=== PATIENT | male | born 1995 | race Two or more races ===

== ENCOUNTER 2017-06-07 17:25 | Emergency (ER) | payer SELFPAY ==
--- NOTE | 2017-06-07 18:07 | EDM.PDOC ---
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, last Td 1 to 1.5y ago superficial - Related Data Home Meds: Home Meds Cephalexin 500 mg PO TID #15 tablet 06/07/17 [Rx] ED ROS GENERAL - Review of Systems Review Of Systems: See Below Constitutional: Reports: No Symptoms HEENT: Reports: No Symptoms Respiratory: Reports: No Symptoms Cardiovascular: Reports: No Symptoms Endocrine: Reports: No Symptoms GI/Abdominal: Reports: No Symptoms : Reports: No Symptoms Musculoskeletal: Reports: No Symptoms Skin: Reports: Wound Neurological: Reports: No Symptoms Psychiatric: Reports: No Symptoms Hematologic/Lymphatic: Reports: No Symptoms Immunologic: Reports: No Symptoms ED EXAM, GENERAL - Physical Exam Exam: See Below Exam Limited By: No Limitations General Appearance: Alert, WD/WN, No Apparent Distress Skin Exam: Other (over R knee there is a horizontal nail parallel to the skin, 12 cm long under 6 cm of skin (length) with depth of only 5 mm, just subc, freely mobile, XR unremarkable, no clinical evidence of involvement of joint or patella retinaculum or LCL, just lateral to midline, tip pointe downward, top inserted into top of skin, grasped with pliers and extracted, no bleeding, no evidence of additional f.b.) Course - Orders/Labs/Meds Orders: Active Orders 24 hr Category Date Time Status Knee 3V Rt [CR] Stat Exams 06/07/17 17:34 Ordered Departure - Departure Time of Disposition: 18:06 Disposition: Home, Self-Care 01 Condition: Good Clinical Impression: Injury by nail gun - Discharge Information Prescriptions: Cephalexin 500 mg PO TID #15 tablet Instructions: Puncture Wound Referrals: PCP,None [Primary Care Provider] - Additional Instructions: Do not immerse leg in bathtub or pool or water for 7 days. May shower. However, keep the wound covered and dry for 48 hours. To decrease the risk of infection, take cephalexin 500 mg 1 tab 3 times a day for 5 days. For pain, if needed, take ibuprofen 200 mg 4 tabs 3 times a day. May work. See a physician the same day for any increase in pain, warmth, fever, drainage, redness or swelling. Call your Physician or Return to Emergency Department if: * Your condition worsens in any way. * You develop fever greater than 100.4. * You have vomiting that does not stop with medications. * You have pain that is not controlled with medications. No sumerja la pierna en la baera, la piscina o el agua helio 7 salinas. Puede ducharse. Sin embargo, mantenga la herida tapada y seca helio 48 horas. Para disminuir el riesgo de infeccin, tome cephalexin 500 mg 1 pestaa 3 veces al da helio 5 salinas. Para el dolor, si es necesario, tome ibuprofeno 200 mg 4 tabletas 3 veces al d a. Podra funcionar. Consulte a un mdico el mismo da para cualquier aumento de dolor, calor, fiebre , drenaje, enrojecimiento o hinchazn. Llame a cuevas mdico o regrese al departamento de emergencia si: * Cuevas condicin empeora de cualquier manera. * Usted desarrolla fiebre mayor que 100.4. * Tiene vmitos que no se detienen con los medicamentos. * Tiene dolor que no se controla con medicamentos. - My Orders Last 24 Hours: My Active Orders 06/07/17 17:34 Knee 3V Rt [CR] Stat - Assessment/Plan Last 24 Hours: My Active Orders 06/07/17 17:34 Knee 3V Rt [CR] Stat
[2017-06-07] MEDS ORDERED: Cephalexin 500 MG Cap PO ONE (18:13)
--- NOTE | 2017-06-08 10:32 | CR ---
INDICATION: Nail under skin, question joint involvement. RIGHT KNEE: Three views of the right knee were obtained, revealing a large nail apparently in the soft tissues adjacent to the medial aspect of the distal femur and proximal tibia. A definite fracture or dislocation was not identified. A definite joint effusion is not identified, suggesting that the nail is not traversing the joint space. This should be correlated clinically, however. CT examination may be helpful for confirmation, as felt to be clinically necessary. MTDD
== END 2017-06-07 18:30 | disposition home or self-care (01) ==
LOC: FB.ED 17:25
DX: S81.031A Puncture wound without foreign body, right knee, initial encounter (principal); W29.4XXA Contact with nail gun, initial encounter
CPT/HCPCS: 73562; 99283; A9270